=== PATIENT | female | born 1930 | race Caucasian/White ===

== ENCOUNTER 2017-06-03 10:19 | Observation (INO) ==
--- NOTE | 2017-06-03 10:54 | Emergency Department Note ---
ED Disposition Clinical Impression: Drug rash UTI (urinary tract infection) Qualifiers: Urinary tract infection type: site unspecified Hematuria presence: without hematuria Qualified Code(s): N39.0 - Urinary tract infection, site not specified Disposition: Still a Patient Condition on Discharge: Good - Critical Care Critical Care Time: No Attestation: On 06/03/17, the high probability of a clinically significant, sudden or life threatening deterioration of the following system(s) required my full and direct attention, intervention and personal management. The time I documented below is in addition to time spent performing reported procedures but includes the following listed in this critical care notation. Medical Decision Making - Bharath Inquiry Pt receiving controlled substance: No Vital Signs: 06/03/17 10:21 06/03/17 10:52 Temperature 97.1 F L Temperature Source Oral Pulse Rate 100 H Pulse Rate [Right Brachial] 115 H Respiratory Rate 22 Blood Pressure [Right Arm] 141/108 Blood Pressure Mean [Right Arm] 119 02 Sat by Pulse Oximetry 95 Oxygen Delivery Method Room Air Nasal Cannula Oxygen Flow Rate (LPM) 3 - Lab Data Lab Results 06/03/17 10:40: WBC 13.0 H, RBC 3.47 L, Hgb 11.1 L, Hct 35.1 L, MCV 101.0 H, MCH 32.0 H, MCHC 31.7 L, RDW 12.8, Plt Count 294, MPV 7.9, Neut % (Auto) 87.2 H , Lymph % (Auto) 6.4 L, [place] % (Auto) 3.1, Eos % (Auto) 3.3, Baso % (Auto) 0.1, Neut # (Auto) 11.3 H, Lymph # (Auto) 0.8, [place] # (Auto) 0.4, Eos # (Auto) 0.4, Baso # (Auto) 0.0, Total Counted 100, Neutrophils % (Manual) 89 H, Band Neutrophils % 1.0, Lymphocytes % (Manual) 6 L, Monocytes % (Manual) 3, Eosinophils % (Manual) 1, Platelet Estimate Normal 06/03/17 10:40: Sodium 141, Potassium 4.7, Chloride 104, Carbon Dioxide 26, Anion Gap 15.7 H, BUN 26 H, Creatinine 1.55 H, Estimated Creat Clear 26, Estimated GFR 31 L, Est GFR ( Amer) 38 L, Glucose 119 H, Calcium 9.2, Total Bilirubin 0.3, AST 21, ALT 15, Alkaline Phosphatase 74, Total Protein 7.5 , Albumin 3.5, Globulin 4.0 H, Albumin/Globulin Ratio 0.9 L 06/03/17 10:40: Total Creatine Kinase 85, CK-MB (CK-2) 0.6, CK-MB (CK-2) Rel Index 0.7, Troponin I 0.10 H 06/03/17 11:50: Urine Color Yellow, Urine Appearance Clear, Urine pH 6.5, Ur Specific [place] 1.015, Urine Protein 1+, Urine Glucose (UA) Negative, Urine Ketones Negative, Urine Blood Negative, Urine Nitrate Negative, Urine Bilirubin Negative, Urine Urobilinogen 0.2, Ur Leukocyte Esterase Trace, Urine RBC None, Urine WBC 10-20, Ur Squamous Epith Cells 5-10, Urine Bacteria 1+ Result diagrams: 06/03/17 10:40 06/03/17 10:40 Orders (Tests/Meds): ED MEDICATIONS Generic Name Dose Route Start Last Admin Trade Name Freq PRN Reason Stop Dose Admin Albuterol/Ipratropium 3 ml 06/03/17 10:30 06/03/17 10:40 Duoneb 3ml Neb IH 07/03/17 10:29 3 ml Q1H VIRGEN Administration Carvedilol 6.25 mg 06/03/17 21:00 Coreg 6.25mg Tablet PO 07/03/17 20:59 BID VIRGEN Furosemide 20 mg 06/04/17 09:00 Lasix 20mg Tablet PO 07/04/17 08:59 DAILY [facility] Ceftriaxone Sodium 1 gm/ 50 mls @ 100 mls/hr 06/03/17 13:45 06/03/17 13:53 Sodium Chloride IV 06/17/17 13:44 100 mls/hr Q24H VIRGEN Administration Protocol Lisinopril 20 mg 06/03/17 21:00 Zestril 20mg Tab PO 07/03/17 20:59 BID VIRGEN Non-Formulary Medication 500 mcg 06/04/17 09:00 Cyanocobalamin (Vitamin B-12) [Vitamin B-12] PO 07/04/17 08:59 DAILY VIRGEN Non-Formulary Medication 0.4 mg 06/04/17 09:00 Folic Acid [Folic Acid] PO 07/04/17 08:59 DAILY VIRGEN Discontinued Medications Generic Name Dose Route Start Last Admin Trade Name Mildred PRN Reason Stop Dose Admin Famotidine 20 mg 06/03/17 11:10 06/03/17 11:39 Pepcid 20mg/2ml Vial IV 06/03/17 11:11 20 mg ONCE ONE Administration Methylprednisolone Sodium Succinate 125 mg 06/03/17 10:30 06/03/17 10:57 Solu-Medrol 125mg/2ml Vial IV 06/03/17 10:31 125 mg ONCE ONE Administration ORDERS Category Date Time Status Urine Culture Stat Micro 06/03/17 11:50 Received - Radiology Data #1 Image(s): Chest Image Reviewed: Yes I reviewed the patient's radiology image Chronic elevation right diaphragm. Bilateral interstitial changes, no significant change from prior. - ECG Data Tracing #1 EKG interpreted by Sanju Castillo MD: Rhythm: sinus Rate: 86 [place]: normal Ectopy: none Conduction: normal ST Segment Changes: Nonspecific T Wave Changes: Nonspecific Q Waves: none No evidence of acute ischemia or injury Prior electrocardiagrams reviewed. No change from prior tracings. Medical Decision Narrative: 12:55 PM: Classic sulfa drug rash. Discussed with Krysta Michael, she will discuss with Dr. Allen and call back. 1:45 PM: I have discussed the case with Krysta Michael, for Dr. Allen who agrees to admit the patient to the hospital. We discussed the patient's clinical information, including history, exam, laboratory and radiology results and ED course. Per hospital procedure, I will write temporary bridge inpatient orders on the patient. Specific orders requested by the admitting physician: Rocephin for UTI, continue steroids General Adult HPI - General Chief complaint: Allergic Reaction Stated complaint: ALLERGIC REACTION Time Seen by Provider: 06/03/17 10:54 Mode of Arrival: EMS Limitations: No Limitations Description of Symptoms (Recalled from ER Triage Doc. by RN): [facility] STAFF STATE THAT PATIENT DEVELOPED A TOTAL BODY RASH AND SOA. NH STAFF. ONSET WAS ACUTE OVER THE COURSE OF AN HOUR. PT ONLY MED CHANGE DURING LAST WEEK INVOLVES CHANGING FROM IMDUR ER TO IMDUR 10MG PO. PT CONSUMED NORMAL BREAKFAST THIS MORNING CONSISTING OF BANANA,HAM,GRAVY AND GRAPE JUICE. - History of Present Illness HPI narrative: Brought in by ambulance from [facility] for an allergic reaction. Started having a generalized rash this morning. History is obtained from daughter. The patient has dementia and a chronic dysarthria. Daughter also states she seems to be having trouble breathing, lips are swollen, more confused and more dysarthria than usual. Daughter says she was fine last night. States was started on antibiotic last week for UTI. Also heart medications changed a couple of days ago - Imdur added. Daughter states only known drug allergy is aspirin, unknown reaction. Given 50 mg of Benadryl prior to arrival. - Related Data Home Medications Medication Instructions Recorded Confirmed Cyanocobalamin (Vitamin B-12) 500 mcg PO DAILY 05/25/17 05/25/17 [Vitamin B-12] Folic Acid 0.4 mg PO DAILY 05/25/17 05/25/17 Carvedilol [Carvedilol 6.25mg Tab] 6.25 mg PO BID 05/26/17 05/26/17 Furosemide [Furosemide 20mg Tab] 20 mg PO DAILY 05/26/17 05/26/17 Lisinopril [Lisinopril 20mg Tab] 20 mg PO DAILY 05/26/17 05/26/17 Previous Rx's Medication Instructions Recorded Carvedilol [Coreg 6.25mg 6.25 mg PO BID tablet 05/26/17 Tablet] Cyanocobalamin/Folic Acid [Vitamin 1 each PO DAILY 05/26/17 Q20-Hmeci Acid Tablet] Furosemide [Lasix 20mg tablet] 20 mg PO DAILY tablet 05/26/17 Lisinopril [Zestril 20mg tab] 20 mg PO BID tablet 05/26/17 Allergies Allergy/AdvReac Type Severity Reaction Status Date / Time Sulfa (Sulfonamide Allergy Hives Verified 06/03/17 13:46 Antibiotics) aspirin AdvReac Mild NA-DIZZINES Verified 05/12/17 13:32 S [facility] History I have reviewed the patient's past medical history: Yes Medical History: Reports:: Hypertension, Myocardial Infarction Denies:: Cancer, Diabetes Mellitus Type 1, Diabetes Mellitus Type 2, MRSA Other Medical History: Reports: Arthritis, Cataracts Comment: Hearing loss Other Surgeries: Yes: Hysterectomy-Total, Tubal Ligation Amputation: No Fractures: No - Social History Educational Level: Completed High School Smoking Status: Never smoker Alcohol Intake: never Occupational Status: retired Housing: longterm Household Members: none - Psychiatric History Expresses thoughts of harming self/others: None Suicide Plan Description: No Plan Family Hx:: No significant family history ROS Obtained: Yes unobtainable due to mental condition Physical Exam - General General appearance: alert Comment: Mild tachypnea. Lips mildly edematous, speech slightly dysarthric due to edema. I am able to understand her, however. States that she knows she is in the hospital. Denies pain or itching. - Head Head exam: atraumatic, normocephalic, normal inspection - Eye Eye exam: Present: normal appearance, PERRL, EOMI - ENT ENT exam: Present: other (Edema of lips) - Neck Neck exam: Present: normal inspection, full ROM, trachea midline. Absent: meningismus, lymphadenopathy - Chest Chest inspection: Present: normal inspection, symmetric chest wall rise. Absent : tenderness - Respiratory Respiratory exam: Present: normal lung sounds bilaterally. Absent: respiratory distress - Cardiovascular Cardiovascular exam: Present: regular rate, normal rhythm. Absent: JVD - Abdominal Exam Abdominal exam: Present: soft, normal bowel sounds. Absent: distention, tenderness, guarding - Extremities Exam Extremities exam: Present: normal inspection, full ROM, normal capillary refill. Absent: calf tenderness - Back Exam Back exam: Present: normal inspection. Absent: tenderness - Neurological Exam Neurological exam: Present: alert, oriented X3 - Psychiatric Psychiatric exam: Present: normal affect, normal mood - Skin Skin exam: Present: warm, dry, rash - Expanded Skin Exam Comment: Classic sulfa drug reaction with morbilliform rash with areas of confluence. No vesicles, negative Nikolsky. no mucosal lesions. - Lymphatic Lymphatic Findings: no adenopathy
[2017-06-03 11:24] LABS: Basophils % 0.1 % (0.1-2.0); Eosinophils # 0.4 K/mm3 (0.0-0.4); Eosinophils % 3.3 % (0.1-12.0); Hematocrit 35.1 % (37.0-47.0); Hemoglobin 11.1 g/dL (12.2-16.2); Lymphocytes # 0.8 K/mm3 (0.7-4.5); Lymphocytes % 6.4 K/mm3 (10-50); Mean Corpuscular HGB Conc 31.7 g/dL (31.8-35.4); Mean Platelet Volume 7.9 fl (7.4-10.4); Monocytes # 0.4 K/mm3 (0.1-1.0); Monocytes % 3.1 % (1.7-9.3); Neutrophils # 11.3 K/mm3 (1.8-7.8); Neutrophils % 87.2 % (37.0-80.0); Platelet Count 294 K/mm3 (142-424); Red Blood Count 3.47 M/mm3 (4.20-5.40); Red Cell Distribution Width 12.8 % (11.5-17.5)
[2017-06-03 11:29] LABS: Albumin Level 3.5 gm/dL (3.4-5.0); Albumin/Globulin Ratio 0.9 (1.1-1.8); Anion Gap 15.7 mEq/L (5-15); Bilirubin,Total 0.3 mg/dL (0.2-1.0); Calcium 9.2 mg/dL (8.5-10.1); Potassium 4.7 mmoL/L (3.5-5.1); Total Protein,Serum 7.5 gm/dL (6.4-8.2)
[2017-06-03 11:58] LABS: Microscopic, Urine URINE MICROSCOPIC (MICROSCOPIC)
[2017-06-03 12:02] LABS: Appearance,Urine CLEAR (Clear); Bilirubin,Urine Negative (Negative); Blood, Urine Negative (Negative); Color,Urine YELLOW (Yellow); Glucose,Urine (UA) Negative (Negative); Ketones,Urine Negative (Negative); Leukocyte Esterase,Urine TRACE (Negative); PH,Urine 6.5 (5.0-8.5); Protein,Urine 1+ (Negative); Specific Gravity, Urine 1.015 (1.005-1.030); Urobilinogen,Urine 0.2 EU/dl (0.2)
[2017-06-03 12:06] LABS: Eosinophils % 1 % (0-3); Lymphocytes % 6 % (10-50); Monocytes % 3 % (2-9); Neutrophils % 89 % (42-76); Total Cells Counted 100
[2017-06-03 12:15] LABS: Bacteria,Urine 1+ /lpf
--- NOTE | 2017-06-03 14:34 | Pharmacy Consult Notes ---
[facility] Pharmacy VTE Monitoring - Patient Demographics Admission date: 06/03/17 Report Date: 06/03/17 Time: 14:34 Allergies/Adverse Reactions: Patient Allergies Sulfa (Sulfonamide Antibiotics) Allergy (Verified 06/03/17 13:46) Hives aspirin Adverse Reaction (Mild, Verified 05/12/17 13:32) NA-DIZZINESS Height: 1.6 m Weight: 65.771 kg Patient Problems: Current Active Problems UTI (urinary tract infection) (Acute) Drug rash (Acute) - VTE Risk Labs: VTE Related Lab Results Hgb 11.1 g/dL (12.2-16.2) L 06/03/17 10:40 Hct 35.1 % (37.0-47.0) L 06/03/17 10:40 Plt Count 294 K/mm3 (142-424) 06/03/17 10:40 BUN 26 mg/dL (7-18) H 06/03/17 10:40 Creatinine 1.55 mg/dL (0.55-1.02) H 06/03/17 10:40 Estimated Creat Clear 26 mL/min (0-300) 06/03/17 10:40 Clinical Trial Participant: No - Prophylaxis VTE Prophylaxis Ordered?: Yes Types of VTE Prophylaxis: TEDS Knee High
--- NOTE | 2017-06-04 13:46 | H&P/Discharge Summary ---
General - General Admission date: 06/03/17 Discharge date: 06/04/17 *Admission Date: 06/03/17 *Chief complaint: allergic reaction *History of present illness: 87 yr old female via ambulance from [facility] for an allergic reaction. Started having a generalized rash this morning. The patient has dementia and a chronic dysarthria. Daughter also stated in ed she seems to be having trouble breathing, lips are swollen, more confused and more dysarthria than usual. Daughter says she was fine last night. States was started on antibiotic last week for UTI. Also heart medications changed a couple of days ago - Imdur added. Daughter states only known drug allergy is aspirin, unknown reaction.Given 50 mg of Benadryl prior to arrival. Pt admitted for monitoring and iv fluids, steroids. [facility] History I have reviewed the patient's past medical history: Yes Medical History: Reports:: Hypertension, Myocardial Infarction Denies:: Cancer, Diabetes Mellitus Type 1, Diabetes Mellitus Type 2, MRSA Other Medical History: Reports: Arthritis, Cataracts Other Surgeries: Yes: Hysterectomy-Total, Tubal Ligation Amputation: No Fractures: No - *Social History Educational Level: Completed High School Smoking Status: Never smoker Alcohol Intake: never Occupational Status: retired Housing: senior living Household Members: none - Psychiatric History Expresses thoughts of harming self/others: None Suicide Plan Description: No Plan *Family Hx:: No significant family history Review of Systems - Review of Systems Review of systems:: other, pertinent systems reviewed and negative unless documented below - Constitutional Denies body ache(s) - Eyes Denies sensitivity to light - ENT Denies difficulty swallowing, Denies lip swelling - *Cardiovascular Reports shortness of breath, Denies generalized swelling - *Respiratory Reports shortness of breath - *Gastrointestinal Denies pain with swallowing - *Genitourinary Denies frequent nighttime urination - *Musculoskeletal Denies limited joint movement - Integumentary/Breasts Reports itching, Reports rash - Psychiatric Denies panic attacks - Endocrine Denies heat intolerance - Allergic/Immunologic Denies lip swelling Exam Vital signs and Labs for Last 24 Hours: Temp Pulse Resp BP Pulse Ox 97.6 F 67 20 118/61 92 L 06/04/17 08:00 06/04/17 08:00 06/04/17 08:00 06/04/17 08:00 06/04/17 08:00 I & O for Last 24 hours: Intake & Output 06/02/17 06/03/17 06/04/17 06/05/17 11:59 11:59 11:59 11:59 Intake Total 1747 / 1747 Output Total 300 / 300 Balance 1447 / 1447 Weight 104 lb 7 oz - Constitutional no acute distress - *Routine HEENT Exam Head: Present: normocephalic Eye: Present: PERRL ENT: Present: mucous membranes moist - *Routine Neck Exam Present: full ROM - *Routine Respiratory Exam Present: CTA bilaterally - *Routine Cardiovascular Exam Present: RRR - *Routine Abdominal Exam Present: soft, normoactive bowel sounds - *Routine Skin Exam Present: intact - *Routine Neurological Exam Present: alert - Routine Psychiatric Exam Present: normal affect, normal thought process Hospital Course Hospital Course: iv fluids, iv steroids, moniotring of vitals, Discharge Medications Discharge Medications: Home Medications Medication Instructions Recorded Confirmed Type Acetaminophen 500 mg PO Q6HP PRN 06/03/17 06/03/17 History Carvedilol [Coreg 6.25mg 6.25 mg PO BID 06/03/17 06/03/17 History Tablet] Cyanocobalamin (Vitamin B-12) 500 mcg PO DAILY 06/03/17 06/03/17 History [Vitamin B-12] Folic Acid 0.4 mg PO DAILY 06/03/17 06/03/17 History Furosemide [Lasix 20mg tab] 20 mg PO DAILY 06/03/17 06/03/17 History Isosorbide Mononitrate 10 mg PO DAILY 06/03/17 06/03/17 History Lisinopril [Lisinopril 20mg Tab] 20 mg PO BID 06/03/17 06/03/17 History Polyethylene Glycol 3350 [Miralax 17 gm PO DAILYP PRN 06/03/17 06/03/17 History 17gm Packet] Disposition Disposition: Xfer SNF
== END 2017-06-04 17:38 ==
LOC: 2ND 10:19 → ER 10:19 → 2ND 14:53
PROVIDERS: ADMIT Emergency Medicine; ATTEND Emergency Medicine